=== PATIENT | male | born 1995 | race Caucasian/White ===

== ENCOUNTER 2017-07-08 09:30 | Emergency (ER) | payer OTHER ==
[2017-07-08 09:38] VITALS: BP 153/85; PULSE 107; TEMP 98.7; BMI 27.6
[2017-07-08] MEDS ORDERED: LORATADINE 10 MG TABLET PO ONE (10:08)
[2017-07-08] MEDS ORDERED: ACETAMINOPHEN 500 MG TABLET (FP) PO ONE (10:08)
--- NOTE | 2017-07-08 10:08 | PDOC ---
History of Present Illness - General Chief Complaint: Sore Throat Stated Complaint: SORE THROAT Time Seen by Provider: 07/08/17 09:54 Exam Limitations: No Limitations - History of Present Illness Initial Comments: 07/08/17 10:09 22 year old male with history of asthma and left inguinal hernia repair presents with sorethroat and runny nose since yesterday. Patient reports nose running clear liquid and pain with swallowing, these symptoms associated with occasional coughing. Used acetaminophen cold and cough with no relief. 07/08/17 10:13 Timing/Duration: reports: yesterday Severity: reports: mild Possible Cause: Yes: no prior episodes Modifying Factors: improves with: other Associated Symptoms: reports: cough, sore throat Aspirin Received prior to arrival: Yes: no aspirin today ASA Contraindications(Core Measure): No: Allergy Beta Guillermina Contraindications(Core Measure): Yes: Not Prescribed Beta Guillermina Given by EMS(Core Measure): No Beta Guillermina Taken at Home(Core Measure): No Beta Guillermina Not Indicated at this Time(Core Measure): No Past History - Travel Traveled outside of the country in the last 30 days: Yes Close contact w/someone who was outside of country & ill: No - Past Medical History Allergies/Adverse Reactions: Allergies Allergy/AdvReac Type Severity Reaction Status Date / Time No Known Allergies Allergy Verified 07/08/17 09:38 Home Medications: Ambulatory Orders Loratadine [Claritin] 10 mg PO DAILY #10 tablet 07/08/17 Penicillin V Potassium [Pen Vee K -] 500 mg PO TID #21 tablet 07/08/17 Asthma: Yes COPD: No - Surgical History Abdominal Surgery: Yes (INGUINAL HERNIA REPAIR) - Suicide/Smoking/Psychosocial Hx Smoking History: Never smoked Have you smoked in the past 12 months: No Hx Alcohol Use: Yes (occasional) Drug/Substance Use Hx: No Substance Use Type: None Review of Systems - Review of Systems Able to Perform ROS?: Yes Is the patient limited Serbian proficient: No Constitutional: No: Chills, Malaise, Night Sweats, Weakness, Weight Stable HEENTM: Yes: Throat Pain. No: Ear Pain, Nose Congestion, Throat Swelling Respiratory: No: Cough, Shortness of Breath, Wheezing Cardiac (ROS): No: Chest Pain, Lightheadedness, Palpitations ABD/GI: No: Blood Streaked Bowels, Nausea, Poor Appetite, Poor Fluid Intake, Indigestion, Abdominal cramping Musculoskeletal: No: Back Pain Integumentary: No: Bruising, Change in Color, Flushing Neurological: No: Numbness, Tingling, Tremors Psychiatric: No: Frequent Crying Endocrine: No: Excessive Sweating Hematologic/Lymphatic: No: See HPI, Anemia *Physical Exam - Vital Signs Last Vital Signs Temp Pulse Resp BP Pulse Ox 98.7 F 107 H 20 153/85 99 07/08/17 09:36 07/08/17 09:36 07/08/17 09:36 07/08/17 09:36 07/08/17 09:36 - Physical Exam General Appearance: Yes: Nourished, Appropriately Dressed HEENT: positive: JEB, Rhinorrhea Neck: positive: Supple. negative: Lymphadenopathy (R), Lymphadenopathy (L) Respiratory/Chest: positive: Lungs Clear. 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 NML intact, Fully Oriented, Alert, Normal Mood/ Affect Medical Decision Making - Medical Decision Making 07/08/17 10:18 22 year old male with history of asthma and inguinal hernia presents with sorethroat since yesterday 07/08/17 10:56 07/08/17 19:52 +strep A Rx: pen vk *DC/Admit/Observation/Transfer Diagnosis at time of Disposition: Strep pharyngitis - Discharge Dispostion Disposition: HOME Condition at time of disposition: Good Admit: No - Prescriptions Prescriptions: Loratadine [Claritin] 10 mg PO DAILY #10 tablet Penicillin V Potassium [Pen Vee K -] 500 mg PO TID #21 tablet - Referrals Referrals: King Bryson MD [Primary Care Provider] - - Patient Instructions Printed Discharge Instructions: Sore Throat, Allergic Rhinitis Additional Instructions: Take medication as prescribed Drink plenty of fluids May suck on hard candy to soothe throat Take tylenol or ibuprofen for fever Do not share utensils with anyone - Post Discharge Activity Forms/Work/School Notes: Back to Work
[2017-07-08] MEDS ORDERED: ACETAMINOPHEN 500 MG TABLET (FP) ONE (10:14)
[2017-07-08] MEDS ORDERED: LORATADINE 10 MG TABLET ONE (10:14)
== END 2017-07-08 10:56 | disposition home or self-care (01) ==
LOC: JERFT 09:30
DX: J02.0 Streptococcal pharyngitis (principal); B95.0 Streptococcus, group A, as the cause of diseases classified elsewhere; J45.909 Unspecified asthma, uncomplicated
CPT/HCPCS: 87070; 87077; 87430; 99281-25

== ENCOUNTER 2018-11-04 18:25 | Emergency (ER) | payer OTHER ==
[2018-11-04 18:30] VITALS: BP 147/83; PULSE 88; TEMP 98; BMI 29.9
--- NOTE | 2018-11-04 19:12 | PDOC ---
History of Present Illness - General Chief Complaint: Rash Stated Complaint: RASH Time Seen by Provider: 11/04/18 18:44 History Source: Patient Exam Limitations: Clinical Condition - History of Present Illness Initial Comments: 11/04/18 19:13 Patient with no significant past medical history present with complaint of 3 weeks history of red rash to whole back which he was told by dermatology is folliculitis. Patient was seen 3 weeks ago for symptoms and prescribed Keflex and Bactrim antibiotics but he stopped taking it because medication made him feel sick. Patient was seen by PCP who prescribed him doxycycline for 10 days which he reported helped with his symptoms a little but still persist. Patient was seen by dermatology 2 days ago for a prescription was posterior to be sent to the pharmacy the pharmacy never receive a prescription in office as being close and has been able to get in contact with office. Patient is concerned for MRSA as father had MRSA infection in the past. Denies fever, chills. Denies any other symptoms Timing/Duration: reports: other (3 weeks) Past History - Past Medical History Allergies/Adverse Reactions: Allergies Allergy/AdvReac Type Severity Reaction Status Date / Time No Known Allergies Allergy Verified 11/04/18 18:29 Home Medications: Ambulatory Orders Cephalexin Monohydrate [Keflex -] 500 mg PO BID #14 capsule 10/19/18 Sulfamethoxazole/Trimethoprim [Bactrim Ds -] 1 tab PO BID #14 tablet 10/19/18 Clindamycin 1% Gel [Cleocin 1% Gel -] 1 applic TP BID 7 Days #1 tube 11/04/18 Clindamycin [Cleocin -] 300 mg PO BID 7 Days #14 capsule 11/04/18 Asthma: Yes COPD: No - Surgical History Abdominal Surgery: Yes (INGUINAL HERNIA REPAIR) - Suicide/Smoking/Psychosocial Hx Smoking History: Never smoked Have you smoked in the past 12 months: No Hx Alcohol Use: Yes (OCCASIONALLY) Drug/Substance Use Hx: No Substance Use Type: None Review of Systems - Review of Systems Able to Perform ROS?: Yes Is the patient limited Marshallese proficient: No Constitutional: No: Chills, Fever, Malaise HEENTM: No: Symptoms Reported, See HPI, Eye Pain, Blurred Vision, Tearing, Recent change in vision, Double Vision, Cataracts, Ear Pain, Ocular Prothesis, Ear Discharge, Nose Pain, Nose Congestion, Tinnitus, Nose Bleeding, Hearing Loss , Throat Pain, Throat Swelling, Mouth Pain, Dental Problems, Difficulty Swallowing, Mouth Swelling, Other Respiratory: No: Symptoms reported, See HPI, Cough, Orthopnea, Shortness of Breath, SOB with Exertion, SOB at Rest, Stridor, Wheezing, Productive cough, Hemoptysis, Other Cardiac (ROS): No: Symptoms Reported, See HPI, Chest Pain, Edema, Irregular Heart Rate, Lightheadedness, Palpitations, Syncope, Chest Tightness, Other ABD/GI: No: Symptoms Reported Musculoskeletal: No: Symptoms Reported Integumentary: Yes: Symptoms Reported, See HPI, Rash (back) Neurological: No: Symptoms reported All Other Systems: Reviewed and Negative *Physical Exam - Vital Signs Last Vital Signs Temp Pulse Resp BP Pulse Ox 98 F 88 18 147/83 99 11/04/18 18:28 11/04/18 18:28 11/04/18 18:28 11/04/18 18:28 11/04/18 18:28 - Physical Exam Comments: 11/04/18 19:18 GENERAL: Well developed, well nourished. Awake and alert. No acute distress. HEENT: Normocephalic, atraumatic. PERRLA, EOMI. No conjunctival pallor. Sclera are non-icteric. Moist mucous membranes. Oropharynx is clear. NECK: Supple. Full ROM. CARDIOVASCULAR: Regular rate and rhythm. No murmurs, rubs, or gallops. PULMONARY: No evidence of respiratory distress. Lungs clear to auscultation bilaterally. No wheezing, rales or rhonchi. ABDOMINAL: Soft. Non-tender. Non-distended. No rebound or guarding. No organomegaly. Normoactive bowel sounds. MUSCULOSKELETAL Normal range of motion at all joints. SKIN: Warm and dry. Normal capillary refill. Diffuse vesicular erythematous rash to upper and mid back without excoriations NEUROLOGICAL: Alert, awake, appropriate. Gait is normal without ataxia. PSYCHIATRIC: Cooperative. Good eye contact. Appropriate mood General Appearance: Yes: Nourished, Appropriately Dressed. No: Apparent Distress Medical Decision Making - Medical Decision Making 11/04/18 19:16 Patient with no significant past medical history present with complaint of 3 weeks history of red rash to whole back which he was told by dermatology is folliculitis. Patient was seen 3 weeks ago for symptoms and prescribed Keflex and Bactrim antibiotics but he stopped taking it because medication made him feel sick. Patient was seen by PCP who prescribed him doxycycline for 10 days which he reported helped with his symptoms a little but still persist. Patient was seen by dermatology 2 days ago for a prescription was posterior to be sent to the pharmacy the pharmacy never receive a prescription in office as being close and has been able to get in contact with office. Patient is concerned for MRSA as father had MRSA infection in the past. Denies fever, chills. Denies any other symptoms Exam significant for diffuse erythematous vesicular rash to upper and lower back without excoriations. Symptoms likely folliculitis. Patient be discharged home on topical Cleocin antibiotics and by mouth clindamycin with advised to follow-up back with dermatology *DC/Admit/Observation/Transfer Diagnosis at time of Disposition: Dermatitis, Folliculitis - Discharge Dispostion Disposition: HOME Condition at time of disposition: Stable Decision to Admit order: No - Prescriptions Prescriptions: Clindamycin [Cleocin -] 300 mg PO BID 7 Days #14 capsule Clindamycin 1% Gel [Cleocin 1% Gel -] 1 applic TP BID 7 Days #1 tube - Referrals Referrals: King Bryson MD [Primary Care Provider] - - Patient Instructions Printed Discharge Instructions: DI for Folliculitis Additional Instructions: Take medications as prescribed. follow-up back with your dermatitis in 5-7 days for reassessment. follow-up with PCP as discussed - Post Discharge Activity
== END 2018-11-04 19:20 | disposition home or self-care (01) ==
LOC: JERFT 18:25
DX: L73.9 Follicular disorder, unspecified (principal); L30.9 Dermatitis, unspecified
CPT/HCPCS: 99281-25

== ENCOUNTER 2018-11-23 12:52 | Emergency (ER) | payer OTHER ==
[2018-11-23 13:40] VITALS: BMI 29.9
--- NOTE | 2018-11-23 14:11 | PDOC ---
History of Present Illness - General Chief Complaint: Headache Stated Complaint: CHILLS/ HEADACHE/ DIZZNESS Time Seen by Provider: 11/23/18 13:44 History Source: Patient Exam Limitations: No Limitations Past History - Travel Traveled outside of the country in the last 30 days: No Close contact w/someone who was outside of country & ill: No - Past Medical History Allergies/Adverse Reactions: Allergies Allergy/AdvReac Type Severity Reaction Status Date / Time No Known Allergies Allergy Verified 11/23/18 13:36 Home Medications: Ambulatory Orders Cephalexin Monohydrate [Keflex -] 500 mg PO BID #14 capsule 10/19/18 Sulfamethoxazole/Trimethoprim [Bactrim Ds -] 1 tab PO BID #14 tablet 10/19/18 Clindamycin 1% Gel [Cleocin 1% Gel -] 1 applic TP BID 7 Days #1 tube 11/04/18 Clindamycin [Cleocin -] 300 mg PO BID 7 Days #14 capsule 11/04/18 Ibuprofen 600 mg PO Q6H #30 tablet 11/23/18 Asthma: Yes COPD: No - Surgical History Abdominal Surgery: Yes (INGUINAL HERNIA REPAIR) - Immunization History Immunization Up to Date: Yes - Suicide/Smoking/Psychosocial Hx Smoking History: Never smoked Have you smoked in the past 12 months: No Hx Alcohol Use: No Drug/Substance Use Hx: No Substance Use Type: None Review of Systems - Review of Systems Able to Perform ROS?: Yes Comments:: 11/23/18 15:54 CONSTITUTIONAL: Absent: fever, chills, diaphoresis, generalized weakness, malaise, loss of appetite HEENT: Absent: rhinorrhea, nasal congestion, throat pain, throat swelling, difficulty swallowing, mouth swelling, ear pain, eye pain, visual Changes CARDIOVASCULAR: Absent: chest pain, loss of consciousness, palpitations, irregular heart rate, peripheral edema RESPIRATORY: Absent: cough, shortness of breath, dyspnea with exertion, orthopnea, wheezing, stridor, hemoptysis GASTROINTESTINAL: Absent: abdominal pain, abdominal distension, nausea, vomiting, diarrhea, constipation, melena, hematochezia GENITOURINARY: Absent: dysuria, frequency, urgency, hesitancy, hematuria, flank pain, genital pain MUSCULOSKELETAL: Absent: myalgia, arthralgia, joint swelling SKIN: Absent: rash, itching, pallor HEMATOLOGIC/IMMUNOLOGIC: Absent: easy bleeding, easy bruising, lymphadenopathy, frequent infections ENDOCRINE: Absent: unexplained weight gain, unexplained weight loss, heat intolerance, cold intolerance NEUROLOGIC: Present: headache, lightheadedness Absent: headache, focal weakness or paresthesias, dizziness, unsteady gait, seizure, mental status changes, bladder or bowel incontinence PSYCHIATRIC: Absent: anxiety, depression, suicidal or homicidal ideation, hallucinations. Is the patient limited Luxembourger proficient: No *Physical Exam - Vital Signs Last Vital Signs Temp Pulse Resp BP Pulse Ox 98.2 F 72 16 141/97 95 11/23/18 13:37 11/23/18 13:37 11/23/18 13:37 11/23/18 13:37 11/23/18 13:37 - Physical Exam Comments: 11/23/18 16:01 GENERAL: Well developed, well nourished. Awake and alert. No acute distress. HEENT: Normocephalic, atraumatic. PERRLA, EOMI. No conjunctival pallor. Sclera are non- icteric. Moist mucous membranes. Oropharynx is clear. NECK: Supple. Full ROM. No JVD. Carotid pulses 2+ and symmetric, without bruits. No thyromegaly. No lymphadenopathy. CARDIOVASCULAR: Regular rate and rhythm. No murmurs, rubs, or gallops. Distal pulses are 2+ and symmetric. PULMONARY: No evidence of respiratory distress. Lungs clear to auscultation bilaterally. No wheezing, rales or rhonchi. ABDOMINAL: Soft. Non-tender. Non-distended. No rebound or guarding. No organomegaly. Normoactive bowel sounds. MUSCULOSKELETAL Normal range of motion at all joints. No bony deformities or tenderness. No CVA tenderness. EXTREMITIES: No cyanosis. No clubbing. No edema. No calf tenderness. SKIN: Warm and dry. Normal capillary refill. No rashes. No jaundice. NEUROLOGICAL: Alert, awake, appropriate. Cranial nerves 2-12 intact. No deficits to light touch and temperature in face, upper extremities and lower extremities. No motor deficits in the in face, upper extremities and lower extremities. Normoreflexic in the upper and lower extremities. Normal speech. Toes are down- going bilaterally. Gait is normal without ataxia. PSYCHIATRIC: Cooperative. Good eye contact. Appropriate mood and affect. ED Treatment Course - LABORATORY CBC & Chemistry Diagram: 11/23/18 14:45 11/23/18 14:45 Medical Decision Making - Medical Decision Making 11/23/18 16:06 The patient is a 23 y/o M who presents with one day of headache and lightheadedness. He states that his symptoms usually start after taking his Clindamycin that was prescribed for folliclitis. He states his symptoms have gotten better through out the course of the day, but he still has a mild occipital headache. Denies fevers, chills, vomiting, nausea, photophobia, weakness and dizziness. A/P: Dehydration and headache Pt neurologically intact Gait steady IV fluids, meds, labs ordered No leukocytosis, H&H concentrated suggestive of dehydration EKG rate 67BPM, NSR. Normal intervals and axis. No acute ST-T wave changes Pt feels better after fluids and migraine cocktail States he only has two days left of the Clindamycin; advised to continue taking the medication and have the patient take Motrin as needed. Rx sent Pt to f/u with his PCP this week DC home I discussed the physical exam findings, ancillary test results and final diagnoses with the patient. I answered all of the patient's questions. The patient was satisfied with the care received and felt comfortable with the discharge plan and treatment plan. The Patient agrees to follow up with the primary care physician/specialist within 24-72 hours. Return precautions were given. *DC/Admit/Observation/Transfer Diagnosis at time of Disposition: Dehydration Headache Qualifiers: Headache type: unspecified Headache chronicity pattern: unspecified pattern Intractability: not intractable Qualified Code(s): R51 - Headache - Discharge Dispostion Disposition: HOME Condition at time of disposition: Stable Decision to Admit order: No - Referrals Referrals: Knig Bryson MD [Primary Care Provider] - - Patient Instructions Printed Discharge Instructions: DI for Headache Additional Instructions: You were evaluated for your headache and dehydration I suspect your headaches are a medication side effect Continue your medications as prescribed You may take Motrin 600mg every 6 hours as needed for headache Drink plenty of fluids Follow up with your primary care doctor this week Return to the ER for any new or worsening symptoms - Post Discharge Activity
[2018-11-23] MEDS ORDERED: SODIUM CHLORIDE 1,000 ML IV STA (14:17)
[2018-11-23] MEDS ORDERED: ACETAMINOPHEN 1000 MG/100 ML VIAL (NON FORMULARY) IVPB ONE (14:17)
[2018-11-23] MEDS ORDERED: METOCLOPRAMIDE HCL INJECTION 10 MG/2 ML VIAL IVPB ONE (14:17)
[2018-11-23] MEDS ORDERED: ACETAMINOPHEN INJECTION 100 ML IVPB ONE (14:35)
[2018-11-23] MEDS ORDERED: METOCLOPRAMIDE HCL INJECTION 10 MG/2 ML VIAL ONE (14:35)
[2018-11-23 15:13] LABS: BASO % 0.5 % (0-2.0); EOS % 1.8 % (0-4.5); HEMATOCRIT 50.5 % (35.4-49); HEMOGLOBIN 17.2 GM/dL (11.7-16.9); LYMPH % 24.5 % (8-40); MCH 29.6 pg (25.7-33.7); MCHC 34.1 g/dl (32.0-35.9); MEAN CELL VOLUME 86.8 fl (80-96); MEAN PLT VOLUME 8.4 fl (7.5-11.1); MONO % 8.2 % (3.8-10.2); PLATELET COUNT 246 K/MM3 (134-434); RBC 5.83 M/mm3 (4.00-5.60); RDW 15.1 % (11.9-15.9); WHITE BLOOD COUNT 9.2 K/mm3 (4.0-10.0)
[2018-11-23 15:40] LABS: ALBUMIN 4.4 g/dl (3.4-5.0); BILIRUBIN,TOTAL 0.4 mg/dL (0.2-1); BLOOD UREA NITROGEN 12.8 mg/dL (7-18); CALCIUM 9.5 mg/dL (8.5-10.1); CREATININE 0.9 mg/dL (0.55-1.3); POTASSIUM 4.6 mmol/L (3.5-5.1); TOT PROT 8.2 g/dl (6.4-8.2)
[2018-11-23 19:09] VITALS: BP 120/84; PULSE 69; TEMP 97.5
--- NOTE | 2018-11-24 11:32 | EKG ---
Test Reason : Blood Pressure : / mmHG Vent. Rate : 068 BPM Atrial Rate : 068 BPM P-R Int : 128 ms QRS Dur : 086 ms QT Int : 396 ms P-R-T Axes : 018 075 034 degrees QTc Int : 421 ms NORMAL SINUS RHYTHM NORMAL ECG NO PREVIOUS ECGS AVAILABLE Confirmed by ANAMARIA XAVIER MD ([id number]) on 11/24/2018 11:32:04 AM Referred By: Confirmed By:ANAMARIA XAVIER MD
== END 2018-11-23 19:05 | disposition home or self-care (01) ==
LOC: JER 12:52
PROC: 3E033NZ Introduction of Analgesics, Hypnotics, Sedatives into Peripheral Vein, Percutaneous Approach (ICD-10-PCS; principal; 2018-11-23)
PROC: 3E033GC Introduction of Other Therapeutic Substance into Peripheral Vein, Percutaneous Approach (ICD-10-PCS; 2018-11-23)
PROC: 3E0337Z Introduction of Electrolytic and Water Balance Substance into Peripheral Vein, Percutaneous Approach (ICD-10-PCS; 2018-11-23)
DX: E86.0 Dehydration (principal); R51 Headache
CPT/HCPCS: 36415; 80053; 85025; 93005; 93010; 96361; 96365; 96375; 99282-25; J0131; J7030

== ENCOUNTER 2019-02-24 20:02 | Emergency (ER) | payer OTHER ==
[2019-02-24 20:09] VITALS: TEMP 98.1; BMI 29.2
--- NOTE | 2019-02-24 20:55 | PDOC ---
Documentation entered by Sherie Vasquez SCRIBE, acting as scribe for Jhoana Kramer MD. Jhoana Kramer MD: This documentation has been prepared by the lacyibe, Sherie Vasquez SCRIBE, under my direction and personally reviewed by me in its entirety. I confirm that the documentation accurately reflects all work, treatment, procedures, and medical decision making performed by me. Attending Attestation - Resident Resident Name: Stacie Nielsen - ED Attending Attestation I have performed the following: I have examined & evaluated the patient, The case was reviewed & discussed with the resident, I agree w/resident's findings & plan, Exceptions are as noted - HPI HPI: 02/24/19 21:16 The patient is a 23-year-old male with a past medical history significant for asthma and s/p Inguinal hernia repair who presents to the emergency department with left lower quadrant pain. The patient reports the pain presented as a 1/10 dull pain, which has been progressively worsening, currently the pain is 5-6/10 in severity, thats aggravated with urination and defecation. The patient reports he was bending over to pick something up when he felt a sharp pain, promoting to the ED visit. The patient says hes still able to void and pass gas. Denies nausea or vomiting. - Physicial Exam PE: 02/24/19 21:23 Well-nourished well-developed 23-year-old male with complaint of left groin pain Head normocephalic atraumatic Neck is supple Lungs are clear to auscultation bilaterally CVS regular rate and rhythm S1-S2 Abdomen no epigastric tenderness, right lower quadrant benign, some pinpoint tenderness to deep palpation left inguinal area, no guarding Skin warm and dry Neuro alert and oriented x3, no gross focal neuro deficits - Medical Decision Making 02/24/19 21:29 plan [email or web address],UA 02/24/19 23:24 Abdominal ultrasound limited report Findings in the left lower quadrant in the area of pain there is a heterogeneous area or mass up to 5 cm possibly incarcerated hernia. CT scan may be more helpful 02/25/19 00:[address] of the abdomen and pelvis without contrast Focal thickening at the proximal sigmoid colon with stranding compatible with diverticulitis or focal colitis Small pelvic free fluid. No free air and no abscess Small left inguinal fat hernia. No bowel herniation seen. 02/25/19 00:55 The patient has no high fevers or nausea or vomiting and he will be able to take p.o. antibiotics Prescriptions for Levaquin and Flagyl will be E prescribed to his pharmacy Impression focal diverticulitis Plan take p.o. antibiotics and follow-up with his PCP He will be given a referral to a GI specialist also
--- NOTE | 2019-02-24 21:22 | PDOC ---
History of Present Illness - General Chief Complaint: Pain Stated Complaint: ABDOMINAL PAIN Time Seen by Provider: 02/24/19 20:38 - History of Present Illness Initial Comments: 02/24/19 21:22 Mr. Mderano is a 23y/o man with a pmhx of asthma who presents to the ED with LLQ since Monday. The patient reports that he had a L sided inguinal hernia which was repaired with mesh 5y ago. On Monday he started to notice a dull pain in the area where the hernia was. It was /10 when it started and got progressively worse over the weekend and is now 5-6/10. The patient reports the pain is worse with urination or defecation and feels better laying down. He did not try taking any ibuprofen or tylenol for the pain. He reports he is still passing gas and his last BM was this afternoon and it was normal. On ROS he denies nausea, vomiting, diarrhea, constipation, dysuria, hematuria, flank pain , testicular pain, CP, or SOB, 02/24/19 21:28 02/24/19 21:36 Past History - Past Medical History Allergies/Adverse Reactions: Allergies Allergy/AdvReac Type Severity Reaction Status Date / Time No Known Allergies Allergy Verified 11/23/18 13:36 Home Medications: Ambulatory Orders Levofloxacin [Levaquin] 500 mg PO DAILY #7 tablet 02/25/19 metroNIDAZOLE [Flagyl -] 250 mg PO TID #21 tablet 02/25/19 Asthma: Yes COPD: No - Surgical History Abdominal Surgery: Yes (INGUINAL HERNIA REPAIR) - Immunization History Immunization Up to Date: Yes - Psycho Social/Smoking Cessation Hx Smoking History: Never smoked Have you smoked in the past 12 months: No Hx Alcohol Use: No Drug/Substance Use Hx: No Substance Use Type: None Review of Systems - Review of Systems Able to Perform ROS?: Yes Is the patient limited Prydeinig proficient: No Constitutional: No: Chills, Diaphoresis, Fever, Loss of Appetite, Malaise HEENTM: No: Eye Pain, Recent change in vision, Ear Pain, Throat Pain Respiratory: No: Cough, Orthopnea, Shortness of Breath Cardiac (ROS): No: Chest Pain, Edema, Lightheadedness, Palpitations ABD/GI: Yes: Abd. Pain w/ defecation, Other (LLQ abdominal pain). No: Abdominal Distended, Blood Streaked Bowels, Constipated, Diarrhea, Nausea, Vomiting : No: Burning, Dysuria, Discharge, Flank Pain, Hematuria, Testicular Mass, Testicular Swelling, Testicular Pain Musculoskeletal: No: Back Pain, Muscle Pain, Muscle Weakness Integumentary: No: Bruising, Change in Color, Erythema, Rash Neurological: No: Headache, Numbness, Tingling Endocrine: No: Excessive Sweating, Flushing, Intolerance to Cold, Intolerance to Heat All Other Systems: Reviewed and Negative *Physical Exam - Vital Signs Last Vital Signs Temp Pulse Resp BP Pulse Ox 98.1 F 70 19 145/91 100 02/24/19 20:06 02/24/19 20:06 02/24/19 20:06 02/24/19 20:06 02/24/19 20:06 - Physical Exam General Appearance: Yes: Nourished, Appropriately Dressed. No: Apparent Distress HEENT: positive: EOMI, JEB, Normal ENT Inspection, Pharynx Normal Neck: positive: Trachea midline, Supple. negative: Tender Respiratory/Chest: positive: Lungs Clear, Normal Breath Sounds. negative: Chest Tender, Respiratory Distress, Accessory Muscle Use Cardiovascular: positive: Regular Rhythm, Regular Rate, S1, S2. negative: Murmur Gastrointestinal/Abdominal: positive: Normal Bowel Sounds, Tender (in LLQ/ L inguinal region), Flat, Soft. negative: Guarding, Rebound Musculoskeletal: positive: Normal Inspection. negative: CVA Tenderness, Vertebral Tenderness Extremity: positive: Normal Capillary Refill, Normal Inspection, Normal Range of Motion. 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 Medrano is a 23y/o man with a pmhx of asthma who presents to the ED with LLQ since Monday. On physical exam the pt was tender to palpation in the LLQ but there was no obvious herniation. Differential includes obstruction vs. urolithiasis vs. diverticulitis vs. irritation at his old surgical site. Pt is passing gas and defecating normally so obstruction is unlikely. Will obtain basic labs and pelvic u/s. - CBC - CMP - UA - pelvic U/S 02/24/19 23:13 LLQ US with 5cm mass, possible incarcerated hernia? Will Obtain: - CT abdomen and pelvis 02/25/19 00:51 CT without evidence of incarceration. Stranding and inflammation consistent with focal sigmoid diverticulitis. Pt is afebrile without significant leukocytosis. He has no nausea/ vomiting and is able to tolerate PO medication. Will prescribe flagyl 250 TID and levaquin 500 daily for 7 days. Will instruct patient to f/u with his PCP within 1 week and will refer pt to Dr. Martell for GI f/u. Discharge - Discharge Information Problems reviewed: Yes Clinical Impression/Diagnosis: Diverticulitis Condition: Stable Disposition: HOME - Admission No - Additional Discharge Information Prescriptions: Levofloxacin [Levaquin] 500 mg PO DAILY #7 tablet metroNIDAZOLE [Flagyl -] 250 mg PO TID #21 tablet - Follow up/Referral Referrals: Lino Sr MD [Primary Care Provider] - 1 week Mian Martell MD [Staff Physician] - 1 week - Patient Discharge Instructions Patient Printed Discharge Instructions: DI for Diverticulitis Additional Instructions: You were in the hospital because you had worsening LLQ since Monday. While in the emergency department you had blood work, an ultrasound and an abdominal CT scan. Your lab work was normal, but your CT scan showed evidence of diverticulitis. We are discharging you home with 2 antibiotics Flagyl and Levaquin. You should take the Flagyl THREE times per day for SEVEN DAYS. You should take the Levaquin ONCE per day for 7 days. You should follow up with your primary care doctor within 1 week. We are also referring you to a GI doctor who you should follow up with. If you experience worsening abdominal pain, vomiting, blood in your stool or blood in your vomit please return to the emergency department immediately. - Post Discharge Activity
[2019-02-24 22:06] LABS: BASO % 0.7 % (0-2.0); EOS % 0.9 % (0-4.5); HEMOGLOBIN 16.8 GM/dL (11.7-16.9); LYMPH % 18.1 % (8-40); MCH 28.7 pg (25.7-33.7); MCHC 33.6 g/dl (32.0-35.9); MEAN CELL VOLUME 85.3 fl (80-96); MONO % 6.9 % (3.8-10.2); NEUT % 73.4 % (42.8-82.8); PLATELET COUNT 210 K/MM3 (134-434); RBC 5.86 M/mm3 (4.00-5.60); RDW 14.6 % (11.9-15.9); WHITE BLOOD COUNT 10.5 K/mm3 (4.0-10.0)
[2019-02-24 22:26] LABS: URINE APPEARANCE CLEAR; URINE BILIRUBIN NEGATIVE (NEGATIVE); URINE COLOR YELLOW; URINE GLUCOSE (UA) NEGATIVE (NEGATIVE); URINE KETONE TRACE (NEGATIVE); URINE LEUK ESTERASE NEGATIVE (NEGATIVE); URINE NITRITE NEGATIVE (NEGATIVE); URINE PROTEIN NEGATIVE (NEGATIVE); URINE UROBILINOGEN 0.2 mg/dL (0.2-1.0)
[2019-02-24 23:17] LABS: ALBUMIN 4.1 g/dl (3.4-5.0); BILIRUBIN,TOTAL 0.8 mg/dL (0.2-1); BLOOD UREA NITROGEN 10.2 mg/dL (7-18); CALCIUM 9.8 mg/dL (8.5-10.1); POTASSIUM 4.5 mmol/L (3.5-5.1); TOT PROT 7.7 g/dl (6.4-8.2)
[2019-02-25 01:08] VITALS: BP 126/85; PULSE 73
== END 2019-02-25 02:41 | disposition home or self-care (01) ==
LOC: JER 20:02
DX: K57.92 Diverticulitis of intestine, part unspecified, without perforation or abscess without bleeding (principal); J45.909 Unspecified asthma, uncomplicated
CPT/HCPCS: 36415; 74176-TC; 76856-TC; 80053; 81003; 85025; 96365; 99283-25

== ENCOUNTER 2019-03-17 05:56 | Emergency (ER) | payer OTHER ==
[2019-03-17 06:05] VITALS: BP 122/67; PULSE 79; TEMP 97.1; BMI 250.8
--- NOTE | 2019-03-17 08:30 | PDOC ---
Attending Attestation - Resident Resident Name: BishopJl - ED Attending Attestation I have performed the following: I have examined & evaluated the patient, The case was reviewed & discussed with the resident, I agree w/resident's findings & plan, Exceptions are as noted - HPI HPI: 03/17/19 08:59 23yo male with itchy rash to posterior knees, hands, R low back. No hives. No urticaria. No folliculitis. Pt with dry scaling skin. Pt denies f/c. No systemic symptoms. Pt works at [employer] and admits to washing his hands regularly. Pt denies rhinorrhea, sore throat, or mouth lesions. 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 - Physicial Exam PE: 03/17/19 09:00 gen: aaox3, nad heart: +s1s2 reg lungs: cta b/l abd: soft, nt/nd +bs ext: no c/c/e, ambulatory with a steady gait skin: red scaling rash to posterior knees without purulent drainage, no asbcess , no folliculitis, no induration, blanches, also with scaling dry skin to hands and R low back - Medical Decision Making 03/17/19 09:01 a/p: 23yo male with erythematous dry skin -suspect poss eczema vs dry skin vs contact dermatitis -recommend topical creams -recommend dermatology follow up -answered all questions -pt is nontoxic in appearance -pt is stable for dc to home
--- NOTE | 2019-03-17 08:53 | PDOC ---
History of Present Illness - General Chief Complaint: Rash Stated Complaint: RASH Time Seen by Provider: 03/17/19 07:14 History Source: Patient, Old Records Exam Limitations: No Limitations - History of Present Illness Initial Comments: HPI: 23 y/o male presenting to [facility] ER complaining of painful rash to dorsal surface of left hand, right lower back, and in the flexor surfaces of R and L knees. First noticed the rash after returning from work at [employer] around 1am this morning. [place] painful in the shower. No associated shortness of breath, tongue swelling, or difficulty swallowing. Did not eat any new types of foods last night. Denies heavy sweating at work. Did not wear long sleeves. Pt was previously evaluated at this department for a rash and diagnosed with folliculitis. This diagnosis was reportedly confirmed by a ruching machine operator. Pt believes this rash is different, but has difficulty explaining how. Medical Hx: - Remote h/o asthma Surgical Hx: - S/p L inguinal hernia repair Review of Systems: In addition to that documented in the HPI above, the additional ROS was obtained : Constitutional- Denies fevers or chills ENMT- Denies sore throat CV- Denies chest pain Resp- Denies SOB GI- Denies vomiting or diarrhea Skin- Per HPI Physical Examination: Vital signs and nursing notes reviewed. Constitutional- Well-developed, well-nourished adult male in no acute distress or obvious discomfort. Found sleeping on a chair next to the hospital stretcher. Easily arousable to voice. Head- Normocephalic. No obvious external signs of trauma. Cardiovascular / Chest- Regular rate. Peripheral pulses- radial pulses full. Respiratory- Breathing unlabored. Speaking in multi-word responses without pausing. No distress. Neuro- Alert and oriented x4. Moving all four extremities spontaneously. Skin- Warm and dry. Patch of erythema to dorsal surface of left hand, lower right flank, and in flexor surfaces of both R and L knees. No raised lesions. Dry appearing skin. Psych- Affect- appropriate. Mood- normal. Speech was non-labored, non- pressured. MDM: 23 y/o male presenting with several hours of pain skin lesions that were first noticed in the shower. Afebrile. Vitals unremarkable for hypotension or tachycardia. Physical exam as described above. Suspect likely mild eczema. Low suspicion for allergic eruption. Will provide general eczema instructions. Pt already has dermatologic clinic f/u appointment scheduled in the next few weeks. Jl Toussaint M.D., PGY2 Emergency Medicine Resident Past History - Past Medical History Allergies/Adverse Reactions: Allergies Allergy/AdvReac Type Severity Reaction Status Date / Time No Known Allergies Allergy Verified 03/17/19 06:03 Home Medications: Ambulatory Orders NK [No Known Home Medication] 03/17/19 Asthma: Yes COPD: No - Surgical History Abdominal Surgery: Yes (INGUINAL HERNIA REPAIR) - Immunization History Immunization Up to Date: Yes - Psycho Social/Smoking Cessation Hx Smoking History: Never smoked Have you smoked in the past 12 months: No Information on smoking cessation initiated: No Hx Alcohol Use: No Drug/Substance Use Hx: No Substance Use Type: None *Physical Exam - Vital Signs Last Vital Signs Temp Pulse Resp BP Pulse Ox 97.1 F L 79 20 122/67 100 03/17/19 06:03 03/17/19 06:03 03/17/19 06:03 03/17/19 06:03 03/17/19 06:03 Discharge - Discharge Information Problems reviewed: Yes Clinical Impression/Diagnosis: Eczema Qualifiers: Eczema type: flexural Qualified Code(s): L20.82 - Flexural eczema Condition: Good Disposition: HOME - Admission No - Follow up/Referral Referrals: Lino Galaviz [Primary Care Provider] - Your, Civil Design Specialist [Other] - Patient Discharge Instructions Additional Instructions: You were seen today for a rash to your hand, back, and knees. This is likely dry skin or a condition called eczema. This is not life threatening. Eczema Therapy Try the followin) Cover the areas in Aquaphor or Cetaphil two times a day 2) Avoid bathing in hot water 3) Avoid soaps with fragrance and valerio butter 4) Try washing clothes in dye free detergent 5) Make sure nails are trimmed to prevent cutting 5) Take over the counter Benadryl for the itching. Follow the directions on the package insert. Also, try to avoid things that can make eczema worse, such as: - Having dry skin that has not been treated with moisturizing creams or ointments - Being too hot or sweating too much - Being in very dry air - Stress or worry - Sudden temperature changes - Harsh soaps or cleaning products - Perfumes - Wool or synthetic fabrics (like polyester) Follow up with your ruching machine operator doctor at your previously scheduled appointment. Go to the nearest emergency department if your condition worsens or you feel like you need additional emergency evaluation. Print Language: MACEDONIAN - Post Discharge Activity Work/Back to School Note: Back to Work
== END 2019-03-17 09:09 | disposition home or self-care (01) ==
LOC: JER 05:56
DX: L20.82 Flexural eczema (principal); L30.9 Dermatitis, unspecified
CPT/HCPCS: 99282-25

== ENCOUNTER 2019-04-23 13:06 | Emergency (ER) | payer OTHER ==
--- NOTE | 2019-04-23 13:23 | PDOC ---
Rapid Medical Evaluation Chief Complaint: Pain, Acute Time Seen by Provider: 04/23/19 13:21 Medical Evaluation: Allergies Allergy/AdvReac Type Severity Reaction Status Date / Time No Known Allergies Allergy Verified 03/17/19 06:03 04/23/19 13:22 I have performed a brief in-person evaluation of this patient. The patient presents with a chief complaint of: c/o BRYANT, body aches, fever, chills, nasal congestion since today Pertinent physical exam findings: afebrile I have ordered the following: nothing The patient will proceed to the ED for further evaluation. Discharge Disposition - Diagnosis Malaise - Discharge Dispostion Condition at time of disposition: Stable - Referrals - Patient Instructions - Post Discharge Activity
[2019-04-23 13:24] VITALS: BP 131/72; PULSE 109; TEMP 99.2; BMI 33.5
[2019-04-23] MEDS ORDERED: ACETAMINOPHEN 500 MG TABLET (FP) PO ONE (14:24)
[2019-04-23] MEDS ORDERED: ACETAMINOPHEN 500 MG TABLET (FP) ONE (14:28)
--- NOTE | 2019-04-23 14:28 | PDOC ---
History of Present Illness - General Chief Complaint: Pain, Acute Stated Complaint: Headache/fever Time Seen by Provider: 04/23/19 13:21 History Source: Patient Exam Limitations: No Limitations - History of Present Illness Initial Comments: 04/23/19 14:25 24-year-old male with history of asthma and GERD complaining of body aches, frontal headache, sore throat, dry cough since yesterday afternoon. Sister in the home with influenza. Denies nausea, vomiting, chest pain, abdominal pain, rash, neck pain, recent travel or any other complaints. Took acetaminophen last night. ROS: GENERAL/CONSTITUTIONAL: Body aches, subjective fever, denies chills, weakness, dizziness HEAD, EYES, EARS, NOSE AND THROAT: Positive sore throat, no changes in vision, No ear pain or discharge CARDIOVASCULAR: No chest pain RESPIRATORY: Dry cough, denies shortness of breath GASTROINTESTINAL: No pain, nausea, vomiting, diarrhea or constipation GENITOURINARY: No dysuria MUSCULOSKELETAL: No neck or back pain SKIN: No rash NEUROLOGIC: No headache, vertigo, loss of consciousness, or loss of sensation PE: GENERAL: well-appearing, NAD HEAD: NCAT EYES: Pupils equal, round and reactive to light, sclera anicteric, conjunctiva clear ENT: Normal bilateral ear canals, normal TM's, pharynx: no erythema, no exudate , uvula midline NECK: supple, no lymphadenopathy CHEST: nontender RESP: clear, no w/r/r CARDIO: rrr, no m/g/r ABD: +BS, soft, nontender, non distended BACK: no midline spinal ttp, no CVAT EXTREMITIES: Normal range of motion, no edema NEUROLOGICAL: Normal speech, normal gait SKIN: Warm, Dry Is this a multiple visit Asthma Patient?: No Past History - Past Medical History Allergies/Adverse Reactions: Allergies Allergy/AdvReac Type Severity Reaction Status Date / Time No Known Allergies Allergy Verified 03/17/19 06:03 Home Medications: Ambulatory Orders Oseltamivir Phosphate [Tamiflu] 75 mg PO BID 5 Days #10 capsule 04/23/19 Asthma: Yes COPD: No - Surgical History Abdominal Surgery: Yes (INGUINAL HERNIA REPAIR) - Immunization History Immunization Up to Date: Yes - Psycho Social/Smoking Cessation Hx Smoking History: Never smoked Have you smoked in the past 12 months: No Information on smoking cessation initiated: No Hx Alcohol Use: No Drug/Substance Use Hx: No Substance Use Type: None *Physical Exam - Vital Signs Last Vital Signs Temp Pulse Resp BP Pulse Ox 99.2 F 109 H 20 131/72 100 04/23/19 13:21 04/23/19 13:21 04/23/19 13:21 04/23/19 13:21 04/23/19 13:21 Medical Decision Making - Medical Decision Making 04/23/19 14:27 24-year-old male with history of asthma and GERD complaining of dry cough, subjective fever, sore throat and body aches since yesterday. Sister at home with influenza. 04/23/19 15:54 Influenza A positive Acetaminophen p.o. given Note for work provided Tamiflu prescription sent Patient will follow-up with PMD tomorrow Discharge - Discharge Information Problems reviewed: Yes Clinical Impression/Diagnosis: Malaise, Influenza A Condition: Stable Disposition: HOME - Admission No - Follow up/Referral Referrals: King Bryson MD [Primary Care Provider] - - Patient Discharge Instructions Additional Instructions: Rest, remain hydrated Take acetaminophen 975 mg every 6 hours as needed for body aches Take Tamiflu 75 mg 1 tablet twice a day for 5 days Follow-up with your doctor tomorrow Note for work provided - Post Discharge Activity Work/Back to School Note: Back to Work
== END 2019-04-23 16:11 | disposition home or self-care (01) ==
LOC: JERFT 13:06
DX: J09.X2 Influenza due to identified novel influenza A virus with other respiratory manifestations (principal); R53.81 Other malaise; J45.909 Unspecified asthma, uncomplicated; K21.9 Gastro-esophageal reflux disease without esophagitis
CPT/HCPCS: 87804; 99281-25

== ENCOUNTER 2019-10-08 20:39 | Emergency (ER) | payer OTHER ==
[2019-10-08 20:50] VITALS: BP 140/60; PULSE 86; TEMP 98.5; BMI 29.2
--- NOTE | 2019-10-08 20:50 | PDOC ---
Rapid Medical Evaluation Chief Complaint: Vomiting/Diarrhea Time Seen by Provider: 10/08/19 20:47 Medical Evaluation: Allergies Allergy/AdvReac Type Severity Reaction Status Date / Time No Known Allergies Allergy Verified 03/17/19 06:03 10/08/19 20:48 24 year old male with diarrhea. had nausea/ vomiting last night. reports eating out yesterday. denies abdominal pain. denies bloody diarrhea, denies fever/ chills Last Vital Signs Temp Pulse Resp BP Pulse Ox 98.5 F 86 18 140/60 98 10/08/19 20:46 10/08/19 20:46 10/08/19 20:46 10/08/19 20:46 10/08/19 20:46 PE: patient alert ox3. mucosa moist A: diarrhea P: ua 10/08/19 20:49 10/08/19 20:49 Discharge Disposition - Diagnosis Diarrhea Qualifiers: Diarrhea type: unspecified type Qualified Code(s): R19.7 - Diarrhea, unspecified - Referrals - Patient Instructions - Post Discharge Activity
--- NOTE | 2019-10-08 21:22 | PDOC ---
History of Present Illness - General Chief Complaint: Vomiting/Diarrhea Stated Complaint: VOMITING Time Seen by Provider: 10/08/19 20:47 History Source: Patient - History of Present Illness Initial Comments: 10/08/19 22:01 24 year old male c/o NVD after eating bahamian food last night. diarrhea 3 hours ago last vomiting 1 am. girl friend here with same complaints/ inguinal hernia repair. Past History - Medical History Allergies/Adverse Reactions: Allergies Allergy/AdvReac Type Severity Reaction Status Date / Time No Known Allergies Allergy Verified 10/08/19 20:50 Home Medications: Ambulatory Orders Oseltamivir Phosphate [Tamiflu] 75 mg PO BID 5 Days #10 capsule 04/23/19 Loperamide HCl [Imodium A-D] 2 mg PO DAILY #20 capsule 06/08/19 Mag Hydrox/Al Hydrox/Simeth [Mylanta Suspension -] 30 ml PO Q6H #1 bottle 06/08/19 Asthma: Yes COPD: No Disorders: Yes (ulcers) - Surgical History Abdominal Surgery: Yes (INGUINAL HERNIA REPAIR) - Immunization History Immunization Up to Date: Yes - Psycho-Social/Smoking History Smoking History: Never smoked Have you smoked in the past 12 months: No - Substance Abuse Hx (Audit-C & DAST Scrn) How often the patient has a drink containing alcohol: 2-4 times / month Score: In Men: 4 or > Positive; In Women: 3 or > Positive: 2 Screen Result (Pos requires Nsg. Audit-10AR): Negative Review of Systems - Review of Systems Able to Perform ROS?: Yes Is the patient limited Serbian proficient: No Constitutional: No: Symptoms Reported, See HPI, Chills, Diaphoresis, Fever, Loss of Appetite, Malaise, Night Sweats, Weakness, Weight Stable, Unintentional Wgt. Loss, Unexplained wgt Loss, Other ABD/GI: Yes: Diarrhea, Nausea, Vomiting. No: Abdominal Distended, Indigestion, Abdominal cramping *Physical Exam - Vital Signs Last Vital Signs Temp Pulse Resp BP Pulse Ox 98.5 F 86 18 140/60 98 10/08/19 20:46 10/08/19 20:46 10/08/19 20:46 10/08/19 20:46 10/08/19 20:46 - Physical Exam General Appearance: Yes: Appropriately Dressed Cardiovascular: positive: Regular Rhythm, Regular Rate Gastrointestinal/Abdominal: positive: Normal Bowel Sounds, Soft. negative: Tender Musculoskeletal: positive: Normal Inspection Extremity: positive: Normal Capillary Refill, Normal Inspection, Normal Range of Motion Integumentary: positive: Normal Color, Dry, Warm Neurologic: positive: Fully Oriented, Alert, Normal Mood/Affect, Normal Response ED Progress Note - Progress Note Progress Note: 10/09/19 03:55 Acute gastroenteritis P: supportive care, Discharge - Discharge Information Problems reviewed: Yes Clinical Impression/Diagnosis: Acute gastroenteritis Disposition: HOME - Follow up/Referral Referrals: King Bryson MD [Primary Care Provider] - - Patient Discharge Instructions Patient Printed Discharge Instructions: Gastroenteritis Diet Additional Instructions: drink plenty of fluids. start a BRAT (bananas, rice, apples, toast) diet follow up with your doctor as soon as possible return to the ER for any worsening symptoms/ - Post Discharge Activity Work/Back to School Note: Back to Work
[2019-10-08 21:45] LABS: URINE APPEARANCE CLEAR; URINE BILIRUBIN NEGATIVE (NEGATIVE); URINE COLOR YELLOW; URINE GLUCOSE (UA) NEGATIVE (NEGATIVE); URINE KETONE NEGATIVE (NEGATIVE); URINE LEUK ESTERASE NEGATIVE (NEGATIVE); URINE NITRITE NEGATIVE (NEGATIVE); URINE PROTEIN NEGATIVE (NEGATIVE); URINE UROBILINOGEN 0.2 mg/dL (0.2-1.0)
== END 2019-10-08 22:18 | disposition home or self-care (01) ==
LOC: JER 20:39
DX: K52.9 Noninfective gastroenteritis and colitis, unspecified (principal)
CPT/HCPCS: 81003; 99283-25

== ENCOUNTER 2019-12-28 17:53 | Emergency (ER) | payer OTHER ==
[2019-12-28 18:01] VITALS: BP 129/72; PULSE 82; TEMP 97.8; BMI 29.2
--- OUTSIDE RECORDS SUMMARY | 2019-12-28 18:08 | XMS ---
:1995 Author Organization [facility] Support Name Relationship Address Phone [employer] [place] [address] SELENA CUMMINGS SISTER [address] [place] [address] SELENA CUMMINGS Sister [address] [place] [address] Re-disclosure Warning The records that you are about to access may contain information from federally- assisted alcohol or drug abuse programs. If such information is present, then the following federally mandated warning applies: This information has been disclosed to you from records protected by federal confidentiality rules (42 CFR part 2). The federal rules prohibit you from making any further disclosure of this information unless further disclosure is expressly permitted by the written consent of the person to whom it pertains or as otherwise permitted by 42 CFR part 2. A general authorization for the release of medical or other information is NOT sufficient for this purpose. The Federal rules restrict any use of the information to criminally investigate or prosecute any alcohol or drug abuse patient.The records that you are about to access may contain highly sensitive health information, the redisclosure of which is protected by Article 27-F of the [facility] Public Health law. If you continue you may haveaccess to information: Regarding HIV / AIDS; Provided by facilities licensed or operated by the [facility] Office of Mental Health; or Provided by the [facility] Office for People With Developmental Disabilities. If such information is present, then the following [facility] mandated warning applies: This information has been disclosed to you from confidential records which are protected by state law. State law prohibits you from making any further disclosure of this information without the specific written consent of the person to whom it pertains, or as otherwise permitted by law. Any unauthorized further disclosure in violation of state law may result in a fine or alf sentence or both. A general authorization for the release of medical or other information is NOT sufficient authorization for further disclosure. Insurance Providers Payer name Policy type Policy ID Covered Covered alliance party's Policy P adriana / Coverage alliance party ID relationship to Wells Inf ormation type wells [employer] [id number] SP [id number] 200 Results ID Date Data Source [id number] 10/30/2019 02:40:00 PM EDT [facility] Name Value Range Interpretation Code Description Data Haleigh rce(s) Supporting Document(s ) SARS-COV-2 [facility] RESP Diagnostics QL JULIO CESAR+PROBE This lab was ordered by [facility] and reported by [facility]. ID Date Data Source [id number] 08/02/2019 12:00:00 AM EDT [facility] Name Value Range Interpretation Code Description Data Haleigh rce(s) Supporting Document(s ) 2019-nCoV [facility] RNA XXX JULIO CESAR+probe- Imp This lab was [facility] and reported by [employer] Procedure
--- NOTE | 2019-12-28 18:55 | PDOC ---
History of Present Illness - General Chief Complaint: Pain Stated Complaint: PAIN History Source: Patient Exam Limitations: No Limitations - History of Present Illness Initial Comments: 12/28/19 18:47 Patient is a 24-year-old male with history of childhood asthma, left inguinal hernia repair here with complaints of swelling in his anus x1 week. States he had a fever 5 days ago for 1 day with a temp of 103. He took Tylenol and Motrin and the fever resolved. The fever recurred again today and again took more Tylenol and Motrin and the fever resolved. States the swelling in his anus has gone down considerably, however, he still has some pain on bowel movement. Initially has blood coming from the rectum, and straining to have a bowel movement, but now resolved. He was concerned that the fever had something to do with "ulcer" on the anus. Denies nausea, vomiting, dysuria. PMX: Dr. King Hollis PMHX: as above PSCOHX; occ etoh, neg cig, neg drugs GENERAL/CONSTITUTIONAL: [No fever or chills. No weakness. No weight change.] HEAD, EYES, EARS, NOSE AND THROAT: [No change in vision. No ear pain or discharge. No sore throat.] CARDIOVASCULAR: [No chest pain or shortness of breath.] RESPIRATORY: [No cough, wheezing, or hemoptysis.] GASTROINTESTINAL: [No nausea, vomiting, diarrhea or constipation. No rectal bleeding.] GENITOURINARY: [No dysuria, frequency, or change in urination.] MUSCULOSKELETAL: [No joint or muscle swelling or pain. No neck or back pain.] SKIN AND BREASTS: [No rash or easy bruising.] NEUROLOGIC: [No headache, vertigo, loss of consciousness, or loss of sensation.] PSYCHIATRIC: [No depression or anxiety.] ENDOCRINE: [No increased thirst. No abnormal weight change.] HEMATOLOGIC/LYMPHATIC: [No anemia, easy bleeding, or history of blood clots.] ALLERGIC/IMMUNOLOGIC: [No hives or skin allergy. No latex allergy.] GENERAL: [The patient is awake, alert, and fully oriented, in no acute distress.] HEAD: [Normal with no signs of trauma.] EYES: [Pupils equal, round and reactive to light, extraocular movements intact, sclera anicteric, conjunctiva clear.] ENT: [Ears normal, nares patent, oropharynx clear without exudates. Moist mucous membranes.] NECK: [Normal range of motion, supple without lymphadenopathy, JVD, or masses.] LUNGS: [Breath sounds equal, clear to auscultation bilaterally. No wheezes, and no crackles.] HEART: [Regular rate and rhythm, normal S1 and S2 without murmur, rub.] ABDOMEN: [Soft, nontender, normoactive bowel sounds. No guarding, no rebound. No masses.] RECTAL: External hemorrhoids noted, small hemorrhoid noted at 5 o'clock, mild tenderness to palp EXTREMITIES: [Normal range of motion, no edema. No clubbing or cyanosis. No cords, erythema, or tenderness.] NEUROLOGICAL: [Cranial nerves II through XII grossly intact. Normal speech, normal gait.] PSYCH: [Normal mood, normal affect.] SKIN: [Warm, Dry, normal turgor, no rashes or lesions noted.] Past History - Medical History Allergies/Adverse Reactions: Allergies Allergy/AdvReac Type Severity Reaction Status Date / Time No Known Allergies Allergy Verified 12/28/19 18:43 Home Medications: Ambulatory Orders NK [No Known Home Medication] 12/28/19 Asthma: Yes COPD: No Disorders: Yes (ulcers) - Surgical History Abdominal Surgery: Yes (INGUINAL HERNIA REPAIR) - Immunization History Immunization Up to Date: Yes - Psycho-Social/Smoking History Smoking History: Never smoked Have you smoked in the past 12 months: No - Substance Abuse Hx (Audit-C & DAST Scrn) How often the patient has a drink containing alcohol: Monthly or less Score: In Men: 4 or > Positive; In Women: 3 or > Positive: 1 Screen Result (Pos requires Nsg. Audit-10AR): Negative *Physical Exam - Vital Signs Last Vital Signs Temp Pulse Resp BP Pulse Ox 97.8 F 82 20 129/72 97 12/28/19 17:56 12/28/19 17:56 12/28/19 17:56 12/28/19 17:56 12/28/19 17:56 Medical Decision Making - Medical Decision Making 12/28/19 18:47 Patient is a 24-year-old male with history of childhood asthma, left inguinal hernia repair here with complaints of swelling in his anus x1 week. States he had a fever 5 days ago for 1 day with a temp of 103. He took Tylenol and Motrin and the fever resolved. The fever recurred again today and again took more Tylenol and Motrin and the fever resolved. States the swelling in his anus has gone down considerably, however, he still has some pain on bowel movement. Initally has blood coming from the rectum but now resolved. He was concerned that the fever had something to do with "ulcer" on the anus. Patient is also concerned and requested to have COVID tested. External hemorrhoids, will instruct to use Anbesol or hemorrhoidal preparations. COVID with testing done. I discussed the physical exam findings, ancillary test results and final diagnoses with the patient. I answered all of the patient's questions. The patient was satisfied with the care received and felt comfortable with the discharge plan and treatment plan. The Patient agrees to follow up with the primary care physician within 24-72 hours. Discharge - Discharge Information Problems reviewed: Yes Clinical Impression/Diagnosis: External hemorrhoid Fever Qualifiers: Fever type: unspecified Qualified Code(s): R50.9 - Fever, unspecified Condition: Stable Disposition: HOME - Follow up/Referral Referrals: King Bryson MD [Primary Care Provider] - - Patient Discharge Instructions Patient Printed Discharge Instructions: DI for Hemorrhoids Additional Instructions: Your Discharge Instructions: You must call primary care physician within 24 hours to arrange follow-up. Return to the Emergency Department with any new, persistent or worsening symptoms, for fever, chills, SOB, dizziness or any other concerning changes that may occur. Apply some hemorrhoidal/Preparation H twice per day. You may also sit in warm tub of water. - Post Discharge Activity Work/Back to School Note: Back to Work
== END 2019-12-28 19:37 | disposition home or self-care (01) ==
LOC: JER 17:53
DX: K64.8 Other hemorrhoids (principal); R50.9 Fever, unspecified
CPT/HCPCS: 99283-25; U0003

== ENCOUNTER 2020-02-06 16:15 | Emergency (ER) | payer OTHER ==
[2020-02-06 16:21] VITALS: BP 132/74; PULSE 70; TEMP 97.9; BMI 27.8
[2020-02-06] MEDS ORDERED: CYCLOBENZAPRINE HCL 10 MG TABLET (FP) PO ONE (17:32)
[2020-02-06] MEDS ORDERED: CYCLOBENZAPRINE HCL 10 MG TABLET (FP) ONE (17:35)
== END 2020-02-06 17:37 | disposition home or self-care (01) ==
LOC: JERFT 16:15
DX: M54.5 Low back pain (principal)
CPT/HCPCS: 99283-25

== ENCOUNTER 2020-11-24 14:18 | Emergency (ER) | payer OTHER ==
[2020-11-24 14:29] VITALS: BP 125/74; PULSE 76; TEMP 98.1; BMI 32.6
[2020-11-24] MEDS ORDERED: ACETAMINOPHEN 500 MG TABLET (FP) PO ONE (16:13)
[2020-11-24] MEDS ORDERED: ACETAMINOPHEN 325 MG TABLET (FP) ONE (16:25)
== END 2020-11-24 17:13 | disposition home or self-care (01) ==
LOC: JER 14:18
DX: M54.5 Low back pain (principal); S90.32XA Contusion of left foot, initial encounter; W20.8XXA Other cause of strike by thrown, projected or falling object, initial encounter; X50.1XXA Overexertion from prolonged static or awkward postures, initial encounter
CPT/HCPCS: 73630-TC-LT; 99283-25

== ENCOUNTER 2021-01-28 12:22 | Emergency (ER) | payer OTHER ==
[2021-01-28 12:27] VITALS: BP 124/76; PULSE 79; TEMP 97.8; BMI 29.9
[2021-01-28 13:30] LABS: BASO % 1.5 % (0-2.0); EOS % 1.6 % (0-4.5); HEMATOCRIT 45.3 % (35.4-49); HEMOGLOBIN 15.8 GM/dL (11.7-16.9); LYMPH % 30.8 % (8-40); MCH 28.3 pg (25.7-33.7); MCHC 34.9 g/dl (32.0-35.9); MEAN CELL VOLUME 81.1 fl (80-96); MONO % 7.1 % (3.8-10.2); PLATELET COUNT 237 10^3/uL (134-434); RBC 5.58 M/mm3 (4.00-5.60); RDW 15.5 % (11.9-15.9)
[2021-01-28 14:00] LABS: CALCIUM 9.4 mg/dL (8.5-10.1)
[2021-01-28 14:03] LABS: CREATININE 0.9 mg/dL (0.55-1.3)
[2021-01-28 14:05] LABS: BILIRUBIN,TOTAL 0.5 mg/dL (0.2-1); TOT PROT 8.2 g/dl (6.4-8.2)
[2021-01-28] MEDS ORDERED: PIPERACILLIN/TAZOB 3.375 GM 3.375 GM in DEXTROSE 5%-WATER - 50 ML IVPB ONE (16:44)
[2021-01-28] MEDS ORDERED: PIPERACILLIN/TAZOB 3.375 GM 3.375 GM/50 ML BAG IVPB ONE (16:52)
== END 2021-01-28 17:45 | disposition left against medical advice (07) ==
LOC: JER 12:22
DX: K57.92 Diverticulitis of intestine, part unspecified, without perforation or abscess without bleeding (principal)
CPT/HCPCS: 36415; 74177-TC; 80053; 83690; 85025; 99285-25

== ENCOUNTER 2021-12-08 23:53 | Emergency (ER) | payer OTHER ==
[2021-12-09 00:17] VITALS: BP 115/74; PULSE 115; RESP 20; TEMP 98.8; BMI 32.6
[2021-12-09] MEDS ORDERED: ACETAMINOPHEN 1000 MG/100 ML BAG IVPB ONE (00:47)
[2021-12-09] MEDS ORDERED: SODIUM CHLORIDE 0.9% 500 ML INFUS.BAG IV ONE (00:47)
[2021-12-09] MEDS ORDERED: ONDANSETRON 4 MG/2 ML VIAL IVPUSH ONE (00:47)
[2021-12-09] MEDS ORDERED: FAMOTIDINE 20 MG/50 ML IVPB 20 MG/50 ML MG IVPB ONE ×2 (00:47→01:10)
[2021-12-09] MEDS ORDERED: ONDANSETRON 4 MG/2 ML VIAL ONE (01:09)
[2021-12-09] MEDS ORDERED: ACETAMINOPHEN INJECTION 100 ML IVPB ONE (01:09)
[2021-12-09 01:22] LABS: BASO % 0.2 % (0-2.0); EOS % 0.2 % (0-4.5); HEMOGLOBIN 14.8 GM/dL (11.7-16.9); LYMPH % 4.6 % (8-40); MCH 28.3 pg (25.7-33.7); MCHC 34.3 g/dl (32.0-35.9); MEAN CELL VOLUME 82.5 fl (80-96); MEAN PLT VOLUME 7.9 fl (7.5-11.1); MONO % 5.4 % (3.8-10.2); NEUT % 89.6 % (42.8-82.8); PLATELET COUNT 202 10^3/uL (134-434); RBC 5.21 M/mm3 (4.00-5.60); RDW 15.4 % (11.9-15.9); WHITE BLOOD COUNT 10.4 K/mm3 (4.0-10.0)
[2021-12-09 01:48] LABS: ALBUMIN 3.9 g/dl (3.4-5.0); CALCIUM 8.8 mg/dL (8.5-10.1)
[2021-12-09 01:53] LABS: BILIRUBIN,TOTAL 1.1 mg/dL (0.2-1); TOT PROT 7.7 g/dl (6.4-8.2)
[2021-12-09 02:19] LABS: BLOOD UREA NITROGEN 10.5 mg/dL (7-18)
== END 2021-12-09 02:27 | disposition home or self-care (01) ==
LOC: JER 23:53
PROC: 3E0333Z Introduction of Anti-inflammatory into Peripheral Vein, Percutaneous Approach (ICD-10-PCS; principal; 2021-12-08)
PROC: 3E033GC Introduction of Other Therapeutic Substance into Peripheral Vein, Percutaneous Approach (ICD-10-PCS; 2021-12-08)
PROC: 3E033GC Introduction of Other Therapeutic Substance into Peripheral Vein, Percutaneous Approach (ICD-10-PCS; 2021-12-08)
DX: U07.1 COVID-19 (principal)
CPT/HCPCS: 0241U-QW; 36415; 80053; 83735; 85025; 93005; 93010; 99284-25

== ENCOUNTER 2022-01-11 18:44 | Inpatient (IN) | payer OTHER ==
[2022-01-11] MEDS ORDERED: LEVOFLOXACIN IVPB ONE (20:05)
[2022-01-11] MEDS ORDERED: PIPERACILLIN/TAZOB 3.375 GM 3.375 GM in DEXTROSE 5%-WATER - 50 ML IVPB ONE (20:22)
[2022-01-11] MEDS ORDERED: PIPERACILLIN/TAZOB 3.375 GM 3.375 GM/50 ML BAG IVPB ONE (20:42)
[2022-01-11 21:11] LABS: INR 1.03 (0.83-1.09); PROTHROMBIN TIME (PATIENT) 11.8 SEC (9.7-13.0)
[2022-01-11 21:14] LABS: ACTIVATED PTT 34.9 SECONDS (25.2-36.5)
[2022-01-12 00:53] VITALS: BMI 32.5
[2022-01-12 08:06] LABS: BASO % 0.6 % (0-2.0); EOS % 2.4 % (0-4.5); HEMATOCRIT 41.7 % (35.4-49); HEMOGLOBIN 13.9 GM/dL (11.7-16.9); LYMPH % 22.7 % (8-40); MCH 27.8 pg (25.7-33.7); MCHC 33.3 g/dl (32.0-35.9); MEAN CELL VOLUME 83.4 fl (80-96); MEAN PLT VOLUME 8.4 fl (7.5-11.1); MONO % 7.3 % (3.8-10.2); PLATELET COUNT 232 10^3/uL (134-434); RDW 15.8 % (11.9-15.9); WHITE BLOOD COUNT 8.7 K/mm3 (4.0-10.0)
[2022-01-12 08:19] LABS: BLOOD UREA NITROGEN 13.1 mg/dL (7-18); CALCIUM 8.9 mg/dL (8.5-10.1); MAGNESIUM 2.5 mg/dL (1.8-2.4)
[2022-01-12 08:20] LABS: ALBUMIN 3.8 g/dl (3.4-5.0)
[2022-01-12 08:22] LABS: CREATININE 0.8 mg/dL (0.55-1.3); PHOSPHOROUS 3.6 mg/dL (2.5-4.9)
[2022-01-12 08:24] LABS: BILIRUBIN,TOTAL 0.7 mg/dL (0.2-1); TOT PROT 7.3 g/dl (6.4-8.2)
[2022-01-12] MEDS ORDERED: PIPERACILLIN/TAZOB 3.375 GM 3.375 GM in DEXTROSE 5%-WATER - 50 ML IVPB SCH ×2 (10:45→11:00)
[2022-01-12] MEDS ORDERED: ACETAMINOPHEN 1000 MG/100 ML BAG IVPB PRN (10:49)
[2022-01-12] MEDS ORDERED: CEFTRIAXONE 2 GM in DEXTROSE 5%-WATER 100 ML IVPB SCH (16:00)
[2022-01-13] MEDS: PIPERACILLIN/TAZOB 4.5 GM 4.5 GM in DEXTROSE 5%-WATER 100 ML IVPB SCH ×3 (00:36→18:12)
[2022-01-13] MEDS ORDERED: ACETAMINOPHEN 1000 MG/100 ML BAG IVPB PRN (11:57)
[2022-01-13 12:35] LABS: HIV INTERPRETATION NEGATIVE (NEGATIVE)
[2022-01-14] MEDS: PIPERACILLIN/TAZOB 4.5 GM 4.5 GM in DEXTROSE 5%-WATER 100 ML IVPB SCH ×3 (01:42→17:45)
[2022-01-14 09:31] LABS: BASO % 0.7 % (0-2.0); EOS % 2.4 % (0-4.5); HEMATOCRIT 43.5 % (35.4-49); HEMOGLOBIN 14.7 GM/dL (11.7-16.9); LYMPH % 22.1 % (8-40); MCH 28.1 pg (25.7-33.7); MCHC 33.7 g/dl (32.0-35.9); MEAN CELL VOLUME 83.4 fl (80-96); MONO % 5.9 % (3.8-10.2); NEUT % 68.9 % (42.8-82.8); PLATELET COUNT 238 10^3/uL (134-434); RBC 5.22 M/mm3 (4.00-5.60); RDW 15.6 % (11.9-15.9)
[2022-01-14 09:36] LABS: BLOOD UREA NITROGEN 8.5 mg/dL (7-18)
[2022-01-14 09:38] LABS: ALBUMIN 3.8 g/dl (3.4-5.0); CALCIUM 9.1 mg/dL (8.5-10.1)
[2022-01-14 09:40] LABS: MAGNESIUM 2.5 mg/dL (1.8-2.4); PHOSPHOROUS 3.3 mg/dL (2.5-4.9)
[2022-01-14 09:42] LABS: CREATININE 1.1 mg/dL (0.55-1.3)
[2022-01-14 09:43] LABS: BILIRUBIN,TOTAL 0.8 mg/dL (0.2-1); TOT PROT 7.4 g/dl (6.4-8.2)
[2022-01-15] MEDS: PIPERACILLIN/TAZOB 4.5 GM 4.5 GM in DEXTROSE 5%-WATER 100 ML IVPB SCH ×3 (01:54→17:41)
[2022-01-15 09:08] LABS: BASO % 0.6 % (0-2.0); EOS % 2.3 % (0-4.5); HEMATOCRIT 45.1 % (35.4-49); HEMOGLOBIN 14.9 GM/dL (11.7-16.9); LYMPH % 23.5 % (8-40); MCH 27.6 pg (25.7-33.7); MEAN CELL VOLUME 83.8 fl (80-96); MEAN PLT VOLUME 7.8 fl (7.5-11.1); MONO % 5.6 % (3.8-10.2); PLATELET COUNT 285 10^3/uL (134-434); RBC 5.38 M/mm3 (4.00-5.60); RDW 16.2 % (11.9-15.9); WHITE BLOOD COUNT 9.2 K/mm3 (4.0-10.0)
[2022-01-15 09:31] LABS: ALBUMIN 4.3 g/dl (3.4-5.0); BLOOD UREA NITROGEN 8.8 mg/dL (7-18); CALCIUM 9.7 mg/dL (8.5-10.1)
[2022-01-15 09:34] LABS: CREATININE 1.2 mg/dL (0.55-1.3)
[2022-01-15 09:35] LABS: TOT PROT 8.1 g/dl (6.4-8.2)
[2022-01-15 22:29] VITALS: RESP 20
[2022-01-16] MEDS: PIPERACILLIN/TAZOB 4.5 GM 4.5 GM in DEXTROSE 5%-WATER 100 ML IVPB SCH ×3 (01:52→17:57)
[2022-01-16 09:03] LABS: BASO % 0.5 % (0-2.0); EOS % 1.7 % (0-4.5); HEMATOCRIT 48.1 % (35.4-49); HEMOGLOBIN 15.7 GM/dL (11.7-16.9); LYMPH % 21.1 % (8-40); MCH 27.3 pg (25.7-33.7); MCHC 32.7 g/dl (32.0-35.9); MEAN CELL VOLUME 83.7 fl (80-96); MONO % 5.3 % (3.8-10.2); NEUT % 71.4 % (42.8-82.8); PLATELET COUNT 283 10^3/uL (134-434); RBC 5.75 M/mm3 (4.00-5.60); RDW 15.9 % (11.9-15.9); WHITE BLOOD COUNT 10.2 K/mm3 (4.0-10.0)
[2022-01-16 09:25] LABS: ALBUMIN 4.2 g/dl (3.4-5.0); BLOOD UREA NITROGEN 7.8 mg/dL (7-18); CALCIUM 9.3 mg/dL (8.5-10.1)
[2022-01-16 09:30] LABS: BILIRUBIN,TOTAL 0.9 mg/dL (0.2-1)
[2022-01-16 21:56] VITALS: TEMP 97.8
[2022-01-17] MEDS ORDERED: ALPRAZolam 1 MG TABLET PO ONE (00:47)
[2022-01-17] MEDS ORDERED: ALPRAZolam 0.25 MG TABLET PO ONE (01:42)
[2022-01-17] MEDS: PIPERACILLIN/TAZOB 4.5 GM 4.5 GM in DEXTROSE 5%-WATER 100 ML IVPB SCH ×3 (05:26→16:10)
[2022-01-17 09:40] LABS: BASO % 0.6 % (0-2.0); EOS % 1.6 % (0-4.5); HEMATOCRIT 45.1 % (35.4-49); HEMOGLOBIN 14.8 GM/dL (11.7-16.9); LYMPH % 23.5 % (8-40); MCH 27.7 pg (25.7-33.7); MCHC 32.9 g/dl (32.0-35.9); MEAN CELL VOLUME 84.2 fl (80-96); MEAN PLT VOLUME 8.2 fl (7.5-11.1); MONO % 7.6 % (3.8-10.2); NEUT % 66.7 % (42.8-82.8); PLATELET COUNT 297 10^3/uL (134-434); RBC 5.36 M/mm3 (4.00-5.60); RDW 15.6 % (11.9-15.9); WHITE BLOOD COUNT 9.7 K/mm3 (4.0-10.0)
[2022-01-17 10:04] LABS: CALCIUM 9.9 mg/dL (8.5-10.1)
[2022-01-17 10:09] LABS: BILIRUBIN,TOTAL 0.4 mg/dL (0.2-1)
[2022-01-17 12:24] VITALS: BP 112/59; PULSE 66
== END 2022-01-17 17:30 | disposition home or self-care (01) | DRG 244 ==
LOC: JER 18:44 → JERBED 20:29 → J7W 23:43
PROVIDERS: ADMIT Internal Medicine
DX: K57.32 Diverticulitis of large intestine without perforation or abscess without bleeding (principal); E66.9 Obesity, unspecified; Z68.32 Body mass index [BMI] 32.0-32.9, adult; J45.909 Unspecified asthma, uncomplicated; R10.9 Unspecified abdominal pain; R19.7 Diarrhea, unspecified
CPT/HCPCS: 36415; 74176-TC; 74177-TC; 80053; 82272; 83690; 83735; 84100; 85025; 85610; 85730; 86140; 86850; 86900; 86901; 87040; 87389; 93005; 93010; 99283-25; 99285-25; C9803-CS; Q9967; U0003; U0005

== ENCOUNTER 2022-03-21 17:24 | Emergency (ER) | payer OTHER ==
[2022-03-21 18:10] VITALS: BP 152/94; PULSE 73; RESP 20; TEMP 98.4; BMI 30.7
[2022-03-21 19:29] LABS: BASO % 1.4 % (0-2.0); EOS % 3.4 % (0-4.5); HEMATOCRIT 47.1 % (35.4-49); HEMOGLOBIN 15.4 GM/dL (11.7-16.9); LYMPH % 42.2 % (8-40); MCHC 32.7 g/dl (32.0-35.9); MEAN CELL VOLUME 82.8 fl (80-96); MEAN PLT VOLUME 8.2 fl (7.5-11.1); MONO % 7.3 % (3.8-10.2); NEUT % 45.7 % (42.8-82.8); PLATELET COUNT 234 10^3/uL (134-434); RBC 5.69 M/mm3 (4.00-5.60); RDW 15.2 % (11.9-15.9); WHITE BLOOD COUNT 6.9 K/mm3 (4.0-10.0)
[2022-03-21 19:30] LABS: PH,URINE 5.5 (5.0-8.0); URINE APPEARANCE CLEAR; URINE BILIRUBIN NEGATIVE (NEGATIVE); URINE COLOR YELLOW; URINE GLUCOSE (UA) NEGATIVE (NEGATIVE); URINE KETONE NEGATIVE (NEGATIVE); URINE LEUK ESTERASE NEGATIVE (NEGATIVE); URINE NITRITE NEGATIVE (NEGATIVE); URINE PROTEIN NEGATIVE (NEGATIVE); URINE UROBILINOGEN 0.2 mg/dL (0.2-1.0)
[2022-03-21 19:51] LABS: BLOOD UREA NITROGEN 14.5 mg/dL (7-18); CALCIUM 8.9 mg/dL (8.5-10.1)
[2022-03-21 19:53] LABS: CREATININE 0.9 mg/dL (0.55-1.3)
[2022-03-21 19:56] LABS: BILIRUBIN,TOTAL 0.3 mg/dL (0.2-1)
[2022-03-21] MEDS ORDERED: SODIUM CHLORIDE 1,000 ML IV STA (19:58)
[2022-03-21] MEDS ORDERED: ACETAMINOPHEN 1000 MG/100 ML BAG IVPB ONE (19:59)
[2022-03-21 21:08] LABS: PH,URINE 5.5 (5.0-8.0); URINE APPEARANCE CLEAR; URINE BILIRUBIN NEGATIVE (NEGATIVE); URINE COLOR YELLOW; URINE GLUCOSE (UA) NEGATIVE (NEGATIVE); URINE KETONE NEGATIVE (NEGATIVE); URINE LEUK ESTERASE NEGATIVE (NEGATIVE); URINE NITRITE NEGATIVE (NEGATIVE); URINE PROTEIN NEGATIVE (NEGATIVE); URINE UROBILINOGEN 0.2 mg/dL (0.2-1.0)
== END 2022-03-22 02:03 | disposition home or self-care (01) ==
LOC: JER 17:24
PROC: 3E0333Z Introduction of Anti-inflammatory into Peripheral Vein, Percutaneous Approach (ICD-10-PCS; principal; 2022-03-21)
PROC: 3E0337Z Introduction of Electrolytic and Water Balance Substance into Peripheral Vein, Percutaneous Approach (ICD-10-PCS; 2022-03-21)
DX: K57.92 Diverticulitis of intestine, part unspecified, without perforation or abscess without bleeding (principal); R10.9 Unspecified abdominal pain
CPT/HCPCS: 36415; 74177-TC; 80053; 81003; 85025; 87086; 99285-25; Q9967

== ENCOUNTER 2022-03-27 13:53 | Emergency (ER) | payer OTHER ==
[2022-03-27 14:11] VITALS: BMI 34.0
[2022-03-27] MEDS ORDERED: morphine CARPU-JECT 4 MG/1 ML DISP.SYRIN IVPUSH ONE ×2 (14:38→19:43)
[2022-03-27] MEDS ORDERED: ONDANSETRON 4 MG/2 ML VIAL IVPUSH ONE (14:38)
[2022-03-27] MEDS ORDERED: SODIUM CHLORIDE 1,000 ML IV STA (14:38)
[2022-03-27] MEDS ORDERED: ONDANSETRON 4 MG/2 ML VIAL ONE (14:55)
[2022-03-27] MEDS ORDERED: morphine SULFATE 4 MG/ML VIAL ONE ×2 (14:55→19:49)
[2022-03-27 15:20] LABS: BASO % 0.6 % (0-2.0); HEMATOCRIT 47.4 % (35.4-49); HEMOGLOBIN 15.6 GM/dL (11.7-16.9); LYMPH % 18.8 % (8-40); MCHC 32.9 g/dl (32.0-35.9); MEAN CELL VOLUME 82.2 fl (80-96); MEAN PLT VOLUME 7.9 fl (7.5-11.1); MONO % 6.8 % (3.8-10.2); NEUT % 72.8 % (42.8-82.8); PLATELET COUNT 260 10^3/uL (134-434); RBC 5.77 M/mm3 (4.00-5.60); RDW 15.2 % (11.9-15.9); WHITE BLOOD COUNT 9.1 K/mm3 (4.0-10.0)
[2022-03-27 15:47] LABS: CALCIUM 9.7 mg/dL (8.5-10.1)
[2022-03-27 15:48] LABS: BLOOD UREA NITROGEN 14.9 mg/dL (7-18)
[2022-03-27 15:52] LABS: BILIRUBIN,TOTAL 0.9 mg/dL (0.2-1); TOT PROT 7.8 g/dl (6.4-8.2)
[2022-03-27 17:30] LABS: URINE APPEARANCE CLEAR; URINE BILIRUBIN NEGATIVE (NEGATIVE); URINE COLOR YELLOW; URINE GLUCOSE (UA) NEGATIVE (NEGATIVE); URINE KETONE TRACE (NEGATIVE); URINE LEUK ESTERASE NEGATIVE (NEGATIVE); URINE NITRITE NEGATIVE (NEGATIVE); URINE PROTEIN TRACE (NEGATIVE); URINE UROBILINOGEN 0.2 mg/dL (0.2-1.0)
[2022-03-27 19:28] VITALS: BP 118/75; PULSE 73; RESP 18; TEMP 98.4
== END 2022-03-27 21:30 | disposition home or self-care (01) ==
LOC: JER 13:53
PROC: 3E033NZ Introduction of Analgesics, Hypnotics, Sedatives into Peripheral Vein, Percutaneous Approach (ICD-10-PCS; principal; 2022-03-27)
PROC: 3E033NZ Introduction of Analgesics, Hypnotics, Sedatives into Peripheral Vein, Percutaneous Approach (ICD-10-PCS; 2022-03-27)
PROC: 3E033GC Introduction of Other Therapeutic Substance into Peripheral Vein, Percutaneous Approach (ICD-10-PCS; 2022-03-27)
PROC: 3E0337Z Introduction of Electrolytic and Water Balance Substance into Peripheral Vein, Percutaneous Approach (ICD-10-PCS; 2022-03-27)
DX: N44.04 Torsion of appendix epididymis (principal)
CPT/HCPCS: 0241U-QW; 36415; 74177-TC; 80053; 81003; 83690; 85025; 87040; 87086; 93005; 93010; 99285-25; Q9967

== ENCOUNTER 2022-06-01 09:55 | Day surgery (SDC) | payer OTHER ==
[2022-05-26 14:45] VITALS: BMI 30.7
[2022-06-01 11:50] VITALS: TEMP 98
[2022-06-01 12:00] VITALS: BP 116/62; PULSE 82; RESP 19
== END 2022-06-01 12:00 | disposition home or self-care (01) ==
LOC: FASU-ENDO 09:55
PROVIDERS: ATTEND Internal Medicine Gastroenterology
PROC: 0DJD8ZZ Inspection of Lower Intestinal Tract, Via Natural or Artificial Opening Endoscopic (ICD-10-PCS; principal; 2022-06-01 11:04)
DX: K57.30 Diverticulosis of large intestine without perforation or abscess without bleeding (principal); K64.1 Second degree hemorrhoids; R10.9 Unspecified abdominal pain

== ENCOUNTER 2022-10-17 15:51 | Emergency (ER) | payer OTHER ==
[2022-10-17 16:05] VITALS: BP 104/74; PULSE 89; RESP 20; TEMP 98.7; BMI 30.7
== END 2022-10-17 17:58 | disposition home or self-care (01) ==
LOC: JERFT 15:51
DX: J20.9 Acute bronchitis, unspecified (principal); R05.9 Cough, unspecified; R09.81 Nasal congestion; R50.9 Fever, unspecified; R06.02 Shortness of breath
CPT/HCPCS: 71046-TC-FY; 99283-25

== ENCOUNTER 2023-01-31 19:41 | Emergency (ER) | payer OTHER ==
[2023-01-31 19:47] VITALS: BP 127/73; PULSE 98; RESP 20; TEMP 97.9; BMI 32.1
[2023-01-31] MEDS ORDERED: SODIUM CHLORIDE 0.9% 500 ML INFUS.BAG IV ONE (20:08)
[2023-01-31] MEDS ORDERED: ACETAMINOPHEN 1000 MG/100 ML BAG IVPB ONE (20:08)
[2023-01-31] MEDS ORDERED: ACETAMINOPHEN INJECTION 100 ML IVPB ONE (20:16)
[2023-01-31 20:52] LABS: BASO % 0.5 % (0-2.0); EOS % 2.4 % (0-4.5); HEMATOCRIT 45.9 % (35.4-49); HEMOGLOBIN 15.5 GM/dL (11.7-16.9); LYMPH % 32.5 % (8-40); MCH 27.6 pg (25.7-33.7); MCHC 33.7 g/dl (32.0-35.9); MEAN PLT VOLUME 8.6 fl (7.5-11.1); MONO % 4.9 % (3.8-10.2); NEUT % 59.7 % (42.8-82.8); PLATELET COUNT 283 10^3/uL (134-434); RDW 16.5 % (11.9-15.9); WHITE BLOOD COUNT 11.4 K/mm3 (4.0-10.0)
[2023-01-31 21:20] LABS: CALCIUM 8.8 mg/dL (8.5-10.1)
[2023-01-31 21:21] LABS: ALBUMIN 3.8 g/dl (3.4-5.0)
[2023-01-31 21:24] LABS: CREATININE 0.9 mg/dL (0.55-1.3)
[2023-01-31 21:25] LABS: BILIRUBIN,TOTAL 0.5 mg/dL (0.2-1); TOT PROT 7.7 g/dl (6.4-8.2)
[2023-01-31] MEDS ORDERED: KETOROLAC TROMETHAMINE 30 MG/1 ML VIAL IVPUSH ONE (22:48)
== END 2023-01-31 23:09 | disposition home or self-care (01) ==
LOC: JER 19:41
PROC: 3E033NZ Introduction of Analgesics, Hypnotics, Sedatives into Peripheral Vein, Percutaneous Approach (ICD-10-PCS; principal; 2023-01-31)
PROC: 3E033GC Introduction of Other Therapeutic Substance into Peripheral Vein, Percutaneous Approach (ICD-10-PCS; 2023-01-31)
DX: R10.32 Left lower quadrant pain (principal); K65.9 Peritonitis, unspecified
CPT/HCPCS: 36415; 74177-TC; 80053; 85025; 96374; 96375; 99285-25; Q9967

== ENCOUNTER 2023-08-29 20:08 | Emergency (ER) | payer OTHER ==
[2023-08-29 20:16] VITALS: RESP 18; BMI 33.5
[2023-08-29] MEDS ORDERED: KETOROLAC TROMETHAMINE 30 MG/1 ML VIAL ONE (20:47)
[2023-08-29] MEDS ORDERED: ONDANSETRON 4 MG/2 ML VIAL ONE (20:47)
[2023-08-29] MEDS: SODIUM CHLORIDE 0.9% 500 ML INFUS.BAG IV ONE (21:12)
[2023-08-29] MEDS: ONDANSETRON 4 MG/2 ML VIAL IVPUSH ONE (21:12)
[2023-08-29] MEDS: KETOROLAC TROMETHAMINE 30 MG/1 ML VIAL IVPUSH ONE (21:13)
[2023-08-29 21:17] LABS: BASO % 0.5 % (0-2.0); EOS % 1.8 % (0-4.5); HEMATOCRIT 44.4 % (35.4-49); HEMOGLOBIN 15.1 GM/dL (11.7-16.9); LYMPH % 35.7 % (8-40); MCH 28.4 pg (25.7-33.7); MCHC 34.1 g/dl (32.0-35.9); MEAN CELL VOLUME 83.2 fl (80-96); MEAN PLT VOLUME 8.1 fl (7.5-11.1); PLATELET COUNT 268 10^3/uL (134-434); RBC 5.34 M/mm3 (4.00-5.60); RDW 16.2 % (11.9-15.9); WHITE BLOOD COUNT 10.7 K/mm3 (4.0-10.0)
[2023-08-29 21:38] LABS: CHLORIDE 107 mmol/L (98-107); SODIUM 135 mmol/L (136-145)
[2023-08-29 21:40] LABS: ALBUMIN 4.1 g/dl (3.4-5.0); CALCIUM 9.5 mg/dL (8.5-10.1); CO2 25 mmol/L (21-32)
[2023-08-29 21:41] LABS: BLOOD UREA NITROGEN 12.3 mg/dL (7-18); GLUCOSE,RANDOM 109 mg/dL (74-106)
[2023-08-29 21:43] LABS: CREATININE 1.1 mg/dL (0.55-1.3); SGOT/AST 82 U/L (15-37)
[2023-08-29 21:45] LABS: BILIRUBIN,TOTAL 0.4 mg/dL (0.2-1); TOT PROT 8.4 g/dl (6.4-8.2)
[2023-08-29 21:46] LABS: ALK PHOS 118 U/L (45-117)
[2023-08-29 21:59] LABS: ANION GAP 3 mmol/L (4-13); POTASSIUM 7.2 mmol/L (3.5-5.1); SGPT/ALT 50 U/L (13-61)
[2023-08-29 23:51] LABS: POTASSIUM 3.8 mmol/L (3.5-5.1)
[2023-08-29 23:53] LABS: ALBUMIN 3.6 g/dl (3.4-5.0); BLOOD UREA NITROGEN 10.6 mg/dL (7-18); CALCIUM 8.5 mg/dL (8.5-10.1)
[2023-08-29 23:56] LABS: CREATININE 0.8 mg/dL (0.55-1.3)
[2023-08-29 23:58] LABS: BILIRUBIN,TOTAL 0.3 mg/dL (0.2-1); TOT PROT 7.2 g/dl (6.4-8.2)
[2023-08-30] MEDS ORDERED: ACETAMINOPHEN INJECTION 100 ML IVPB ONE
[2023-08-30] MEDS: ACETAMINOPHEN 1000 MG/100 ML BAG IVPB ONE (00:05)
[2023-08-30 01:25] VITALS: BP 129/76; PULSE 67; TEMP 98
== END 2023-08-30 01:25 | disposition home or self-care (01) ==
LOC: JER 20:08
PROC: 3E033NZ Introduction of Analgesics, Hypnotics, Sedatives into Peripheral Vein, Percutaneous Approach (ICD-10-PCS; principal; 2023-08-29)
PROC: 3E0333Z Introduction of Anti-inflammatory into Peripheral Vein, Percutaneous Approach (ICD-10-PCS; 2023-08-29)
PROC: 3E033GC Introduction of Other Therapeutic Substance into Peripheral Vein, Percutaneous Approach (ICD-10-PCS; 2023-08-29)
DX: R10.31 Right lower quadrant pain (principal); R11.0 Nausea
CPT/HCPCS: 36415; 74177-TC; 76705-TC; 80053; 83690; 85025; 99285-25; J0131; Q9967

== ENCOUNTER 2024-02-07 09:06 | Emergency (ER) | payer OTHER ==
[2024-02-07 09:31] VITALS: TEMP 97.5; BMI 33.5
[2024-02-07 11:02] LABS: PH,URINE 5.5 (5.0-8.0); URINE APPEARANCE CLEAR; URINE BILIRUBIN NEGATIVE (NEGATIVE); URINE COLOR YELLOW; URINE GLUCOSE (UA) NEGATIVE (NEGATIVE); URINE KETONE NEGATIVE (NEGATIVE); URINE LEUK ESTERASE NEGATIVE (NEGATIVE); URINE NITRITE NEGATIVE (NEGATIVE); URINE PROTEIN NEGATIVE (NEGATIVE); URINE UROBILINOGEN 0.2 mg/dL (0.2-1.0)
[2024-02-07 12:37] VITALS: BP 144/83; PULSE 71; RESP 14
== END 2024-02-07 12:37 | disposition home or self-care (01) ==
LOC: JER 09:06
DX: R10.31 Right lower quadrant pain (principal)
CPT/HCPCS: 74176-TC; 81003; 82272; 87086; 99284-25